=== PATIENT | female | born 1995 | race Caucasian/White ===

== ENCOUNTER 2018-05-28 17:24 | Outpatient (CLI) | payer OTHER | END 2018-05-28 22:31 | disposition home or self-care (01) | LOC: OBT 17:24 → L-D 17:26 → OBT 22:31 | DX: O40.3XX0 Polyhydramnios, third trimester, not applicable or unspecified (principal); O36.63X0 Maternal care for excessive fetal growth, third trimester, not applicable or unspecified; Z3A.38 38 weeks gestation of pregnancy | CPT/HCPCS: 76815; 76818 ==

== ENCOUNTER 2018-05-30 08:31 | Inpatient (IN) | payer OTHER ==
[2018-05-30] MEDS ORDERED: IBUPROFEN 600 MG TAB PO (09:30)
[2018-05-30] MEDS ORDERED: MISOPROSTOL 200 MCG TAB PR (09:30)
[2018-05-30] MEDS ORDERED: OXYTOCIN 30 UNITS/LR 500 ML IV (09:30)
[2018-05-30] MEDS ORDERED: CARBOPROST 250 MCG INJ IM (09:30)
[2018-05-30] MEDS ORDERED: METHYLERGONOVINE 0.2 MG INJ IM (09:30)
[2018-05-30 09:32] LABS: ADD MAN DIFF? NO
[2018-05-30 09:36] LABS: WHITE BLOOD COUNT 7.7 10^3/ul (4.8-10.8)
[2018-05-30 09:36] LABS: BASOPHILS % 0.5 % (0.0-2.0); EOSINOPHILS # 0.1 10^3/ul (0.0-0.5); EOSINOPHILS % 1.6 % (0.0-7.0); HEMATOCRIT 34.8 % (37.0-47.0); HEMOGLOBIN 11.7 g/dl (12.0-16.0); LYMPHOCYTES # 1.5 10^3/ul (0.8-2.9); LYMPHOCYTES % 19.9 % (15.0-51.0); MEAN CORPUSCULAR HEMOGLOBIN 29.2 pg (29.0-33.0); MEAN CORPUSCULAR HGB CONC 33.6 g/dl (32.0-37.0); MEAN CORPUSCULAR VOLUME 86.8 fl (82.0-101.0); MEAN PLATELET VOLUME 10.7 fl (7.4-10.4); MONOCYTE # 0.4 10^3/ul (0.3-0.9); MONOCYTES % 5.4 % (0.0-11.0); NEUTROPHIL # 5.6 10^3/ul (1.6-7.5); NEUTROPHILS % 72.1 % (39.0-77.0); PLATELET COUNT 258 10^3/UL (140-415); RED BLOOD COUNT 4.01 10^6/ul (4.20-5.40); RED CELL DISTRIBUTION WIDTH 13.7 % (11.5-14.5)
[2018-05-30] MEDS: LACTATED RINGER'S 1,000 ML IV* ×4 (09:47→21:19)
[2018-05-30 09:51] LABS: PROTIME 12.2 Sec (11.9-14.9)
[2018-05-30 09:52] LABS: PARTIAL THROMBOPLASTIN TIME 28.1 Sec (25.0-35.0)
[2018-05-30 10:37] LABS: HEPATITIS B SURFACE ANTIGEN NEGATIVE (NEGATIVE)
[2018-05-30] MEDS: DINOPROSTONE 10 MG VAG SUPP VAG (10:58)
[2018-05-30] MEDS: BUTORPHANOL 2 MG INJ IV (16:23)
[2018-05-30] MEDS ORDERED: FENTAnyl 2MCG/ML-ROPIV 0.2% 100 ML (18:25)
[2018-05-30 21:45] LABS: RAPID PLASMA REAGIN NONREACTIVE (NR)
[2018-05-30] MEDS ORDERED: TERBUTALINE 1 MG/ML INJ SC (22:00)
[2018-05-31] MEDS ORDERED: ONDANSETRON 4 MG INJ IV (01:30)
[2018-05-31] MEDS ORDERED: KETOROLAC 30 MG INJ IV (01:30)
[2018-05-31] MEDS ORDERED: DIPHENHYDRAMINE 50 MG INJ IV (01:30)
[2018-05-31] MEDS ORDERED: HYDROmorphONE 0.5 MG/0.5 ML SYG IV ×2 (01:30)
[2018-05-31] MEDS ORDERED: NALOXONE (0.4 MG/ML) INJ IV (01:30)
[2018-05-31] MEDS: OXYTOCIN 30 UNITS/LR 500 ML IV (02:57)
[2018-05-31] MEDS: LACTATED RINGER'S 1,000 ML IV* ×3 (03:01→17:15)
[2018-05-31] MEDS: FENTAnyl 2MCG/ML-ROPIV 0.2% 100 ML BAG EPI ×3 (03:01→21:40)
[2018-06-01] MEDS: LACTATED RINGER'S 500 ML IV (04:00)
[2018-06-01] MEDS: FENTAnyl 2MCG/ML-ROPIV 0.2% 100 ML BAG EPI (07:02)
[2018-06-01] MEDS: LACTATED RINGER'S 1,000 ML IV* (09:50)
[2018-06-01] MEDS: LIDOCAINE 1% (MPF) 30 ML INJ INJ (14:15)
[2018-06-01] MEDS: MINERAL OIL LIGHT 10 ML VIAL TOP (14:16)
[2018-06-01] MEDS: OXYTOCIN 30 UNITS/LR 500 ML IV (14:55)
[2018-06-01] MEDS ORDERED: ZOLPIDEM 5 MG TAB PO (17:30)
[2018-06-01] MEDS ORDERED: MISOPROSTOL 200 MCG TAB PR (17:30)
[2018-06-01] MEDS ORDERED: OXYTOCIN 30 UNITS/LR 500 ML IV (17:30)
[2018-06-01] MEDS ORDERED: METHYLERGONOVINE 0.2 MG INJ IM (17:30)
[2018-06-01] MEDS ORDERED: OXYCODONE/ASPIRIN (4.88/325) TAB PO ×2 (17:30)
[2018-06-01] MEDS ORDERED: CARBOPROST 250 MCG INJ IM (17:30)
[2018-06-01] MEDS: IBUPROFEN 600 MG TAB PO ×2 (17:35→23:45)
[2018-06-01] MEDS: WITCH HAZEL/GLYCERIN PAD PR (18:07)
[2018-06-01] MEDS: BENZOCAINE 20% 56 ML SPRAY TOP (18:08)
[2018-06-01] MEDS: LANOLIN 7 GM TUBE TOP (18:08)
[2018-06-01] MEDS: SENNA/DOCUSATE NA (8.6MG/50MG) TAB PO (21:07)
[2018-06-02] MEDS: IBUPROFEN 600 MG TAB PO ×4 (05:31→23:46)
[2018-06-02] MEDS: SENNA/DOCUSATE NA (8.6MG/50MG) TAB PO ×2 (09:20→21:11)
[2018-06-02 11:07] LABS: ADD MAN DIFF? NO
[2018-06-02 11:15] LABS: BASOPHILS % 0.2 % (0.0-2.0); EOSINOPHILS % 0.3 % (0.0-7.0); HEMATOCRIT 30.1 % (37.0-47.0); HEMOGLOBIN 10.2 g/dl (12.0-16.0); LYMPHOCYTES # 0.9 10^3/ul (0.8-2.9); LYMPHOCYTES % 6.1 % (15.0-51.0); MEAN CORPUSCULAR HEMOGLOBIN 29.2 pg (29.0-33.0); MEAN CORPUSCULAR HGB CONC 33.9 g/dl (32.0-37.0); MEAN CORPUSCULAR VOLUME 86.2 fl (82.0-101.0); MEAN PLATELET VOLUME 11.1 fl (7.4-10.4); MONOCYTE # 0.5 10^3/ul (0.3-0.9); MONOCYTES % 3.3 % (0.0-11.0); NEUTROPHIL # 13.7 10^3/ul (1.6-7.5); NEUTROPHILS % 89.6 % (39.0-77.0); PLATELET COUNT 195 10^3/UL (140-415); RED BLOOD COUNT 3.49 10^6/ul (4.20-5.40); RED CELL DISTRIBUTION WIDTH 13.6 % (11.5-14.5)
[2018-06-02 11:15] LABS: WHITE BLOOD COUNT 15.2 10^3/ul (4.8-10.8)
[2018-06-03] MEDS: IBUPROFEN 600 MG TAB PO ×2 (05:38→11:28)
[2018-06-03] MEDS: SENNA/DOCUSATE NA (8.6MG/50MG) TAB PO (09:57)
[2018-06-03] MEDS: DIPHTH/TET/ACEL PERTUSS (ADULT) 0.5 ML VIAL IM* (15:52)
== END 2018-06-03 16:35 | disposition home or self-care (01) | DRG 775 ==
LOC: L-D 06-01 15:12 → PP1 06-01 16:53
PROVIDERS: Obstetrics & Gynecology
PROC: 10E0XZZ Delivery of Products of Conception, External Approach (ICD-10-PCS; principal; 2018-05-30)
PROC: 0UQGXZZ Repair Vagina, External Approach (ICD-10-PCS; 2018-05-30)
PROC: 3E033VJ Introduction of Other Hormone into Peripheral Vein, Percutaneous Approach (ICD-10-PCS; 2018-05-30)
DX: O40.3XX0 Polyhydramnios, third trimester, not applicable or unspecified (principal); O71.4 Obstetric high vaginal laceration alone; O36.63X0 Maternal care for excessive fetal growth, third trimester, not applicable or unspecified; O99.214 Obesity complicating childbirth; E66.01 Morbid (severe) obesity due to excess calories; Z68.29 Body mass index [BMI] 29.0-29.9, adult; Z3A.39 39 weeks gestation of pregnancy; Z37.0 Single live birth
CPT/HCPCS: 62319; 85025; 85610; 85730; 86592; 86850; 86900; 86901; 87340; 90715

== ENCOUNTER 2019-01-06 11:50 | Day surgery (SDC) | payer OTHER ==
[~2019-01-06 11:50] MED LIST: PROPOFOL 200 MG INJ
[2019-01-06] MEDS ORDERED: LIDOCAINE 2% (SDV) 5 ML INJ INJ (11:51)
== END 2019-01-06 15:11 | disposition home or self-care (01) ==
LOC: GIL 11:50
DX: R10.13 Epigastric pain (principal)
CPT/HCPCS: 43239; 84703; 88305